=== PATIENT | female | born 1970 | race Caucasian/White ===

== ENCOUNTER → 2021-01-11 11:38 | Outpatient (CLI) | payer OTHER, SELFPAY ==
[2021-01-11 19:57] LABS: COVID19 - ORCAS (NP or Nasal) Negative (Negative)
== END ==
PROVIDERS: Family Provider Family Medicine; PCP Family Medicine; Visit Provider Physician Assistant Medical
DX: Z01.812 Encounter for preprocedural laboratory examination (principal); Z20.822 Contact with and (suspected) exposure to COVID-19
CPT/HCPCS: U0003

== ENCOUNTER → 2021-10-13 09:17 | Outpatient (CLI) | payer OTHER, SELFPAY ==
[2021-10-13 18:24] LABS: Add Manual Diff / Slide Review NO; Basophils Absolute Auto 0 /uL (0-100); Basophils Percent Auto 0.4 % (0-2); Eosinophils Absolute Auto 100 /uL (0-450); Eosinophils Percent Auto 2.2 % (2-4); Hematocrit 40.1 % (36-46); Hemoglobin 13.7 g/dL (12.0-16.0); Lymphocytes Absolute Auto 1300 /uL (1100-4500); Mean Corpuscular HGB Conc 34.1 % (30-36); Mean Corpuscular Hemoglobin 31.2 PG (26-34); Mean Corpuscular Volume 91.5 fL (80-100); Monocytes Absolute Auto 300 /uL (0-900); Monocytes Percent Auto 6.9 % (3-14); Neutrophils Absolute Auto 2800 /uL (1500-7000); Neutrophils Percent Auto 61.5 % (50-75); Red Blood Cell Count 4.38 X10^6/uL (4.0-5.2); Red Cell Distribution Width 12.8 % (11.6-14.8); White Blood Cell Count 4.6 X10^3/uL (4.5-11.0)
[2021-10-13 18:32] LABS: Alanine Aminotransferase 26 IU/L (<35); Albumin 4.4 g/dL (3.5-5.0); Albumin Globulin Ratio 1.5 (1.0-2.8); Alkaline Phosphatase 56 U/L (38-126); Aspartate Aminotransferase 27 IU/L (14-36); BUN Creatinine Ratio 21.2 (6-22); Bilirubin Total 0.7 mg/dL (0.2-1.3); Blood Urea Nitrogen 14 mg/dL (7-17); Calcium 9.5 mg/dL (8.4-10.2); Carbon Dioxide 29 mmol/L (22-32); Chloride 105 mmol/L (98-107); Cholesterol 235 mg/dL (140-199); Estimated Glomerular Filt Rate > 60.0 mL/min (>60); Glucose 100 mg/dL (70-100); HDL Cholesterol 60 mg/dL (40-60); HEMOLYSIS < 15 (0-50); LDL Cholesterol Calculated 154 mg/dL (<100); Potassium 4.6 mmol/L (3.4-5.1); Sodium 139 mmol/L (137-145); Total Protein 7.4 g/dL (6.3-8.2); Triglycerides 103 mg/dL (35-150)
== END ==
PROVIDERS: Family Provider Family Medicine; PCP Family Medicine; Visit Provider Physician Assistant
DX: Z13.220 Encounter for screening for lipoid disorders (principal)
CPT/HCPCS: 80053; 80061; 85025

== ENCOUNTER → 2021-10-17 12:12 | Outpatient (CLI) | payer OTHER, SELFPAY ==
[2021-10-19 08:37] LABS: Interpretation Negative (Negative)
== END ==
PROVIDERS: Family Provider Family Medicine; PCP Physician Assistant; Visit Provider Physician Assistant
DX: R10.33 Periumbilical pain (principal)
CPT/HCPCS: 83013

== ENCOUNTER → 2021-10-25 11:25 | Outpatient (CLI) | payer OTHER, SELFPAY ==
--- NOTE | 2021-10-25 12:01 | DI.CT.S_ITS ---
PROCEDURE: CT ABDOMEN PELVIS W CON INDICATIONS: sharp intermittent pain @ right side umbilicus TECHNIQUE: After the administration of oral and intravenous contrast, axial sections were acquired from the lung bases to the pubic symphysis. Coronal and sagittal reformats were performed. For radiation dose reduction, the following was used: automated exposure control, adjustment of mA and/or kV according to patient size. COMPARISON:None. FINDINGS: Image quality: Excellent. Lung bases: Unremarkable. Heart: No significant findings. ABDOMEN: Liver: Unremarkable. Gallbladder: Surgically absent Biliary ducts: Unremarkable. Pancreas: Unremarkable. Spleen: Unremarkable. Adrenal Glands: Unremarkable. Kidneys and Ureters: Unremarkable. Stomach and Bowel: Stomach, small bowel loops, and colon demonstrate overall normal caliber and wall thickness. There is questionable subtle mucosal thickening and mild pericolonic fat stranding of the ascending colon. The appendix is thin walled and gas filled. Peritoneum: No abnormal intraperitoneal fluid. No free air. Ventral Wall: No hernia. Abdominal Nodes: No retroperitoneal or mesenteric adenopathy by size criteria. Vessels: Aorta and inferior vena cava are normal in size. PELVIS: Pelvic Organs: Unremarkable. An IUD is present within the uterus in the expected location. Bladder: Unremarkable. Pelvic Nodes: No enlarged lymph nodes. Miscellaneous: No inguinal hernias are seen. Bones: Unremarkable. IMPRESSION: 1. Questionable subtle mucosal thickening and pericolonic fat stranding of the ascending colon which may be associated with mild colitis. Follow-up to resolution or colonoscopy recommended to exclude underlying bowel pathology. No free pelvic fluid or pneumoperitoneum. 2. Normal appendix. Dictated by: Ree Kelley M.D. on 10/25/2021 at 13:21 Approved by: Ree Kelley M.D. on 10/25/2021 at 13:27
== END ==
PROVIDERS: Family Provider Family Medicine; PCP Physician Assistant; Referring Provider Physician Assistant; Visit Provider Physician Assistant
DX: R10.33 Periumbilical pain (principal); R19.00 Intra-abdominal and pelvic swelling, mass and lump, unspecified site; Z90.49 Acquired absence of other specified parts of digestive tract
CPT/HCPCS: 74177

== ENCOUNTER → 2022-03-23 13:51 | Outpatient (CLI) | payer OTHER, SELFPAY ==
[2022-03-26 07:25] LABS: Candida species Negative (Negative); Gardnerella vaginalis Negative (Negative); Trichomoas vaginalis Negative (Negative)
== END ==
PROVIDERS: Family Provider Family Medicine; PCP Physician Assistant; Visit Provider Physician Assistant
DX: N89.8 Other specified noninflammatory disorders of vagina (principal); Z12.4 Encounter for screening for malignant neoplasm of cervix
CPT/HCPCS: 87480; 87510; 87660

== ENCOUNTER → 2022-10-08 11:02 | Outpatient (CLI) | payer OTHER, SELFPAY ==
[2022-10-08 19:20] LABS: Add Manual Diff / Slide Review NO; Basophils Absolute Auto 0 /uL (0-100); Basophils Percent Auto 0.5 % (0-2); Eosinophils Absolute Auto 100 /uL (0-450); Eosinophils Percent Auto 1.6 % (2-4); HEMOLYSIS < 15 (0-50); Hematocrit 40.2 % (36-46); Hemoglobin 13.6 g/dL (12.0-16.0); Lymphocytes Absolute Auto 2000 /uL (1100-4500); Lymphocytes Percent Auto 32.6 % (25-40); Mean Corpuscular HGB Conc 33.9 % (30-36); Mean Corpuscular Hemoglobin 31.4 PG (26-34); Mean Corpuscular Volume 92.8 fL (80-100); Monocytes Absolute Auto 400 /uL (0-900); Monocytes Percent Auto 6.6 % (3-14); Neutrophils Absolute Auto 3600 /uL (1500-7000); Neutrophils Percent Auto 58.7 % (50-75); Platelet Count 214 X10^3/uL (150-400); Red Blood Cell Count 4.33 X10^6/uL (4.0-5.2); Red Cell Distribution Width 12.7 % (11.6-14.8); White Blood Cell Count 6.1 X10^3/uL (4.5-11.0)
[2022-10-08 19:23] LABS: Alanine Aminotransferase 29 IU/L (<35); Albumin 4.4 g/dL (3.5-5.0); Albumin Globulin Ratio 1.4 (1.0-2.8); Alkaline Phosphatase 73 U/L (38-126); Aspartate Aminotransferase 29 IU/L (14-36); BUN Creatinine Ratio 19.7 (6-22); Bilirubin Total 0.5 mg/dL (0.2-1.3); Blood Urea Nitrogen 13 mg/dL (7-17); C-Reactive Protein Quant < 0.5 mg/dL (<1.0); Calcium 9.2 mg/dL (8.4-10.2); Carbon Dioxide 30 mmol/L (22-32); Chloride 103 mmol/L (98-107); Cholesterol 246 mg/dL (140-199); Creatine Kinase 166 U/L (30-135); Estimated Glomerular Filt Rate > 60 mL/min (>60); Globulin 3.2 g/dL (1.7-4.1); Glucose 98 mg/dL (70-100); HDL Cholesterol 64 mg/dL (40-60); LDL Cholesterol Calculated 159 mg/dL (<100); Potassium 4.4 mmol/L (3.4-5.1); Sodium 138 mmol/L (137-145); Total Protein 7.6 g/dL (6.3-8.2); Triglycerides 115 mg/dL (35-150)
[2022-10-08 19:31] LABS: Rheumatoid Factor 17.4 IU/mL (<12.0)
[2022-10-08 19:40] LABS: Erythrocyte Sedimentation Rate 8 MM/HR (0-20)
[2022-10-08 19:49] LABS: Estradiol, Total 19.3 pg/mL; TSH w/ Reflex to FT4 0.39 uIU/mL (0.47-4.68)
[2022-10-08 20:08] LABS: Vitamin B12 489 pg/mL (239-931)
[2022-10-08 20:54] LABS: Free T4, Direct Thyroxine 1.06 ng/dL (0.78-2.19)
[2022-10-18 09:39] LABS: Anti Mullerian Hormone 0.027 ng/mL (.)
== END ==
PROVIDERS: Nurse Practitioner Adult Health; Family Provider Family Medicine; PCP Physician Assistant; Visit Provider Physician Assistant
DX: I10 Essential (primary) hypertension (principal); M62.838 Other muscle spasm; R63.5 Abnormal weight gain; M25.50 Pain in unspecified joint; N95.1 Menopausal and female climacteric states
CPT/HCPCS: 80053; 80061; 82397; 82550; 82607; 82670; 83001; 84439; 84443; 85025; 85651; 86140; 86430

== ENCOUNTER → 2022-10-17 11:08 | Outpatient (CLI) | payer OTHER, SELFPAY ==
--- NOTE | 2022-10-17 11:09 | DI.US.S_ITS ---
PROCEDURE: US PELVIC COMPLETE INDICATIONS: lower pelvic bloating TECHNIQUE: Real-time scanning was performed of the pelvic organs, with image documentation. Additional endovaginal scanning was necessary due to incomplete visualization of the adnexal and endometrial structures by transabdominal scanning. COMPARISON: None. FINDINGS: Uterus: 8.8 x 3.9 x 4.2 centimeters. Anteverted. Endometrium measures 12 millimeters, IUD is in place. Ovaries: Right ovary measures 3 cc. Left ovary measures 2 cc. Overall appearance is unremarkable. There is a left 1.2 centimeter para ovarian cyst. Other: No pathologic free abdominal or pelvic fluid. IMPRESSION: No acute sonographic abnormality in the pelvis. IUD is in appropriate position. Endometrium measures 12 millimeters, within normal limits assuming patient is premenopausal. A 1.2 centimeter left paraovarian cyst does not require dedicated follow-up. We strive to produce accurate, complete, and clear reports of imaging services. To assist us in improving patient care, this report was composed using standard report templates and voice recognition software. Therefore, it may contain abnormal punctuation, insertions and/or omissions. Occasional wrong-word or sound-alike substitutions may occur. Though we review the report and make efforts to correct it, we do recommend that the report be read carefully in proper context to recognize any text inaccuracies. Dictated by: Rodolfo Phillip M.D. on 10/17/2022 at 12:48 Approved by: Rodolfo Phillip M.D. on 10/17/2022 at 12:50
== END ==
PROVIDERS: Family Provider Family Medicine; PCP Physician Assistant; Referring Provider Nurse Practitioner Adult Health; Visit Provider Nurse Practitioner Adult Health
DX: N95.1 Menopausal and female climacteric states (principal); R14.0 Abdominal distension (gaseous); N83.202 Unspecified ovarian cyst, left side; Z97.5 Presence of (intrauterine) contraceptive device
CPT/HCPCS: 76830; 76856

== ENCOUNTER → 2022-10-29 13:27 | Outpatient (CLI) | payer OTHER, SELFPAY ==
[2022-10-29 20:35] LABS: Creatine Kinase 211 U/L (30-135); Magnesium 2.3 mg/dL (1.6-2.3)
[2022-10-29 20:47] LABS: Free T3, Triiodothyronine Free 4.65 pg/mL (2.77-5.27); Free T4, Direct Thyroxine 0.99 ng/dL (0.78-2.19)
[2022-10-29 21:28] LABS: Hep C Virus Ab w/Reflex Quant NEGATIVE s/c (NEGATIVE)
[2022-10-30 20:13] LABS: Anti Thyroglobulin Antibody <1.0 IU/mL (0.0-0.9); Thyroid Peroxidase Antibodies 10 IU/mL (0-34)
[2022-10-31 07:59] LABS: Myoglobin 31 ng/mL (25-58)
[2022-10-31 17:28] LABS: CCP Antibodies IgG/IgA 2 units (0-19)
[2022-11-01 21:07] LABS: ANA Screen, IFA Negative (.)
== END ==
PROVIDERS: Family Provider Family Medicine; PCP Physician Assistant; Visit Provider Physician Assistant
DX: E05.90 Thyrotoxicosis, unspecified without thyrotoxic crisis or storm (principal); M62.838 Other muscle spasm; N95.1 Menopausal and female climacteric states; R76.8 Other specified abnormal immunological findings in serum; R79.89 Other specified abnormal findings of blood chemistry; R74.8 Abnormal levels of other serum enzymes
CPT/HCPCS: 82550; 83735; 83874; 84439; 84443; 84481; 86038; 86200; 86376; 86800; 86803

== ENCOUNTER → 2023-02-08 14:22 | Outpatient (CLI) | payer OTHER, SELFPAY ==
--- NOTE | 2023-02-08 14:25 | DI.US.S_ITS ---
PROCEDURE: US THYROID INDICATIONS: Abnormal results of thyroid function studies TECHNIQUE: Real-time scanning was performed of the thyroid gland, with image documentation. COMPARISON: None. FINDINGS: Right: Thyroid lobe measures 5.5 x 1.2 x 2.1 cm, and is homogeneous in echotexture. Left: Thyroid lobe measures 4.8 x 1.4 x 2.0 cm, and is homogenous in echotexture. Isthmus: 4 mm thick. Nodule number: 1 Location: Right inferior Size: 0.7 x 0.5 x 0.9 cm. Composition: Solid Echogenicity: Hypoechoic Shape: wider than tall. Margins: Smooth Echogenic foci: None Total points: 4 ACR TI-RADS category: 4 IMPRESSION: Category 4 lesion as above. Secondary to size and recommendations below, no additional follow-up. ACR TI-RADS definitions and recommendations: TI-RADS 1 (benign): 0 points. FNA not needed. TI-RADS 2 (not suspicious): 2 points. FNA not needed. TI-RADS 3 (mildly suspicious): 3 points. * FNA if 2.5 cm or larger, follow up if 1.5 cm or larger (at 1, 3, and 5 years). TI-RADS 4 (moderately suspicious): 4-6 points. * FNA if 1.5 cm or larger, follow up if 1 cm or larger (at 1, 2, 3, and 5 years). TI-RADS 5 (highly suspicious): 7 points or more. * FNA if 1 cm or larger, follow up if 0.5 cm or larger (every year for 5 years). Dictated by: Mayda Luna M.D. on 02/08/2023 at 16:17 Approved by: Mayda Luna M.D. on 02/08/2023 at 16:18
== END ==
PROVIDERS: Family Provider Family Medicine; PCP Physician Assistant; Referring Provider Internal Medicine Endocrinology, Diabetes & Metabolism; Visit Provider Internal Medicine Endocrinology, Diabetes & Metabolism
DX: R94.6 Abnormal results of thyroid function studies (principal); E04.1 Nontoxic single thyroid nodule
CPT/HCPCS: 76536

== ENCOUNTER 2023-04-12 11:34 | Day surgery (SDC) | payer OTHER, SELFPAY ==
--- NOTE | 2023-04-12 | PATH_ITS ---
[facility] Accession Number: [id number] No. of containers..02 Tissue . 01 Material submitted: . PART A: colon - CECUM POLYP PART B: colon - TRANSVERSE POLYP . 01 Diagnosis: A- COLON, CECUM, POLYP BIOPSY: - BENIGN COLONIC MUCOSA WITH BENIGN LYMPHOID AGGREGATE. --- B- COLON, TRANSVERSE, POLYP BIOPSY: - SESSILE SERRATED ADENOMA. TXN 04/18/2023 1007 Local . 01 Electronically signed: . Kennedi Ramires MD, Pathologist NPI- [id number] . 01 Gross description: . Part A: CECUM POLYP: Received in formalin is 1 fragment(s) of shetty, soft tissue measuring 0.7 x 0.2 x 0.1 cm submitted entirely in 1 cassette(s) Part B: TRANSVERSE POLYP: Received in formalin are 3 fragment(s) of shetty, soft tissue measuring 0.1 x 0.1 x 0.1 cm to 0.3 x 0.3 x 0.2 cm submitted entirely in 1 cassette(s) /KASIA 04/16/2023 2226 Local . 01 Pathologist provided ICD-10: Z12.11 . 01 CPT . 681304, [id number] Specimen Comment: A courtesy copy of this report has been sent to [facility] Pathology Performed at: 01 [facility] [address] [place] [address] [address], [place], [place] [id number] MD Jens Parikh MD Phone: [phone]
[2023-04-12 12:32] VITALS: BP 129/85; PULSE 71; RESP 16; TEMP 36.6; O2SAT 98; BMI 31.7
[2023-04-12] MEDS: LACTATED RINGERS 1,000 ML 42 ML IV (13:11)
--- NOTE | 2023-04-12 13:45 | PM.HP.1 ---
History of Present Illness History of Present Illness Date Patient Seen: 04/12/23 Time Patient Seen: 13:46 Chief complaint: [facility] Narrative: Ms. Hays is a 52-year-old female who presents today for her 2nd follow-up colonoscopy. Her last 1 was done about 2 years ago in [place] and they found approx. 10 polyps. she was told to have a 2 year follow-up because of the number of polyps. She has no family history of colon cancer and no symptoms that are concerning for her. That last colonoscopy was her 1st this will be her 2nd she has no further questions and would like to proceed [facility] Medical History (Updated 04/12/23 @ 13:47 by Patty Pope MD) Abnormal Pap smear of cervix (~1989) Abnormal results of thyroid function studies Chicken pox (~1979) Elevated liver enzymes Encounter for screening colonoscopy Family history of malignant neoplasm of other organs or systems Generalized bloating IUD strings lost Melanoma (~2020) MRSA (methicillin resistant Staphylococcus aureus) (~2009) Pain in left hip Pain in right hip Perimenopausal symptoms Restless leg syndrome Subclinical hyperthyroidism Surgical History (Updated 10/17/21 @ 21:32 by Olive Olson) Anesthesia History of cholecystectomy (~2017) History of knee surgery (~1995) Family History (Updated 10/17/21 @ 21:34 by Olive Olson) Father Prostate cancer Mother Arrhythmia Hypertension Skin cancer Brother Crohn's disease History of heart surgery Social History household members: spouse Smoking Status: Never smoker alcohol intake: current Meds Home Medications and Allergies Home Medications Medication Instructions Recorded Confirmed Type [id number] 5 mg-zeaxanth 1 cap PO DAILY 10/02/22 04/12/23 History 1 mg-bilberry 7.5 mg-herbal capsule (Macular Health Formula) hydrochlorothiazide 25 mg tablet 25 mg PO DAILY 04/12/23 04/12/23 History losartan 50 mg tablet 50 mg PO DAILY 04/12/23 04/12/23 History Allergies Allergy/AdvReac Type Severity Reaction Status Date / Time lisinopril Allergy Unknown Cough Verified 04/10/22 16:12 Exam Vital Signs (past 8 hours): - 04/12/23 12:32 Temperature 97.9 F Pulse Rate 71 Respiratory Rate 16 Blood Pressure 129/85 Pulse Oximetry 98 Oxygen Delivery Method Room Air Oxygen Delivery Method Room Air Const General: cooperative, healthy appearing and comfortable Nutritional Appearance: average body habitus and well nourished [facility] Head: normal to inspection Eyes General: appearance normal, both eyes and all related structures Resp Effort & Inspection: normal respiratory effort and able to speak in complete sentences GI Palpation: soft and No tender Assessment & Plan Assessment and plan (1) Colon cancer screening: Status: Acute (2) Colon polyp: Status: Acute (3) History of colon polyps: Status: Acute Assessment & Plan narrative: Presents today for screening colonoscopy I discussed the risks benefits and alternatives including but not limited to perforation of the colon and an incomplete exam she fully understands these risks and would like to proceed.
[2023-04-12 14:27] VITALS: BP 119/64; PULSE 90; RESP 16; TEMP 36.4; O2SAT 97
[2023-04-12 14:32] VITALS: BP 107/68; PULSE 88; RESP 18; O2SAT 97
[2023-04-12 14:37] VITALS: BP 94/69; PULSE 83; RESP 12; TEMP 36.4; O2SAT 100
--- NOTE | 2023-04-12 14:38 | PM.OP.COLON ---
Operative Date/Time/Diagnoses Date of procedure: 04/12/23 Time of procedure: 14:38 Pre-op diagnosis: Colon cancer screening no family history Post-op diagnosis: same Procedure & Clinicians Study performed: Colonoscopy and biopsy Indications: Colon cancer screening, history of many polyps Surgeon: Patty Pope Procedure Notes Procedure in detail: Patient was taken to the endoscopy suite and placed in a left lateral decubitus position. A time-out was performed. With the help of anesthesiologist conscious sedation was induced and monitored throughout the case. A digital rectal exam was performed and there were no masses or strictures. The colonoscope was introduced into the anal canal and advanced through to the cecum. A photograph of the appendiceal orifice was obtained. The bowel prep was good [place] bowel prep score of 2. The scope was then withdrawn for a total of 15 minutes including biopsy time. There was 1 small polyp in the cecum that was removed with the forceps. There was a 2nd slightly larger sessile type of polyp removed with 3 bites of the forceps in the transverse colon. The scope was then retroflexed and a photograph of the internal hemorrhoidal piles was obtained. Findings: polyp(s) Specimen(s): other (1. Small cecal polyp 2. Transverse colon polyp ) Complications: none Post-procedure Plan for aftercare: There were 2 small polyps depending on the pathology that may affect a follow-up recommendation but given that you had so many polyps just 2 years ago I believe a 5 year follow-up seems reasonable. We will send a letter with your final pathology report and final recommendations for follow-up interval. Any patient with a polyps I do recommend daily fiber supplementation.
[2023-04-12 14:44] VITALS: BP 143/87; PULSE 76; RESP 18; O2SAT 100
== END 2023-04-12 15:00 | disposition home or self-care (01) ==
PROVIDERS: Family Provider Family Medicine; PCP Family Medicine; Referring Provider Surgery; Visit Provider Surgery
PROC: 0DJD8ZZ Inspection of Lower Intestinal Tract, Via Natural or Artificial Opening Endoscopic (ICD-10-PCS; CPT 45378; principal; 2023-04-12 13:00)
DX: Z12.11 Encounter for screening for malignant neoplasm of colon (principal); Z86.010 Personal history of colon polyps; D12.3 Benign neoplasm of transverse colon
CPT/HCPCS: 45380

== ENCOUNTER → 2023-05-03 13:56 | Outpatient (CLI) | payer OTHER, SELFPAY ==
--- NOTE | 2023-05-03 | DI.MRI.S_ITS ---
PROCEDURE: MR PELIS WO/W CON INDICATIONS: SACROILIAC INFLAMMATION TECHNIQUE: Noncontrast axial and oblique coronal T1 spin echo and STIR through the sacroiliac joints. COMPARISON: None. FINDINGS: Image quality: Excellent. Bones: The sacroiliac joints appear intact. No adjacent bone marrow edema to suggest active sacroiliitis. No bony ankylosis. No suspicious marrow space occupying lesions. Soft tissues: No presacral masses. Rectum appears normal in caliber and wall thickness. No pathologic free pelvic fluid. IMPRESSION: 1. No MR evidence of active sacroiliitis. No bony erosion or ankylosis. 2. No fracture or dislocation. No abnormal intraosseous enhancement. 3. No presacral soft tissue abnormalities. Dictated by: John Rice M.D. on 05/03/2023 at 16:32 Approved by: John Rice M.D. on 05/03/2023 at 16:34
== END ==
PROVIDERS: Family Provider Family Medicine; PCP Family Medicine; Referring Provider Specialist/Technologist Athletic Trainer; Visit Provider Specialist/Technologist Athletic Trainer
DX: M46.1 Sacroiliitis, not elsewhere classified (principal)
CPT/HCPCS: 72197; A9579

== ENCOUNTER → 2024-04-10 08:20 | Outpatient (CLI) | payer OTHER, SELFPAY ==
[2024-04-10 18:40] LABS: Add Manual Diff / Slide Review NO; Basophils Absolute Auto 0 /uL (0-100); Basophils Percent Auto 0.6 % (0-2); Eosinophils Absolute Auto 100 /uL (0-450); Eosinophils Percent Auto 2.6 % (2-4); Hematocrit 43.2 % (36-46); Hemoglobin 14.5 g/dL (12.0-16.0); Lymphocytes Absolute Auto 1700 /uL (1100-4500); Lymphocytes Percent Auto 31.7 % (25-40); Mean Corpuscular HGB Conc 33.5 % (30-36); Mean Corpuscular Hemoglobin 31.4 PG (26-34); Mean Corpuscular Volume 93.6 fL (80-100); Monocytes Absolute Auto 500 /uL (0-900); Neutrophils Absolute Auto 3000 /uL (1500-7000); Neutrophils Percent Auto 56.1 % (50-75); Platelet Count 227 X10^3/uL (150-400); Red Blood Cell Count 4.61 X10^6/uL (4.0-5.2); Red Cell Distribution Width 12.6 % (11.6-14.8); White Blood Cell Count 5.4 X10^3/uL (4.5-11.0)
[2024-04-10 19:52] LABS: Follicle Stimulating Hormone 22.6 mIU/mL
[2024-04-10 20:04] LABS: TSH w/ Reflex to FT4 0.61 uIU/mL (0.47-4.68)
[2024-04-10 20:15] LABS: Alanine Aminotransferase 56 IU/L (<35); Albumin 4.5 g/dL (3.5-5.0); Albumin Globulin Ratio 1.5 (1.0-2.8); Alkaline Phosphatase 75 U/L (38-126); Aspartate Aminotransferase 48 IU/L (14-36); BUN Creatinine Ratio 20.6 (6-22); Bilirubin Total 0.7 mg/dL (0.2-1.3); Blood Urea Nitrogen 14 mg/dL (7-17); Carbon Dioxide 26 mmol/L (22-32); Chloride 102 mmol/L (98-107); Cholesterol 258 mg/dL (140-199); Estimated Glomerular Filt Rate > 60 mL/min (>60); Glucose 104 mg/dL (70-100); HDL Cholesterol 67 mg/dL (40-60); HEMOLYSIS < 15 (0-50); LDL Cholesterol Calculated 168 mg/dL (<100); Potassium 4.4 mmol/L (3.4-5.1); Sodium 135 mmol/L (137-145); Total Protein 7.5 g/dL (6.3-8.2); Triglycerides 113 mg/dL (35-150)
[2024-04-12 05:09] LABS: Triiodothyronine T3 Total 99 ng/dL (71-180)
== END ==
PROVIDERS: Family Provider Family Medicine; PCP Family Medicine; Visit Provider Family Medicine
DX: E04.1 Nontoxic single thyroid nodule (principal); R23.2 Flushing; N91.2 Amenorrhea, unspecified; R79.89 Other specified abnormal findings of blood chemistry; I10 Essential (primary) hypertension; E78.5 Hyperlipidemia, unspecified
CPT/HCPCS: 80053; 80061; 83001; 84443; 84445; 84480; 85025

== ENCOUNTER → 2024-09-08 09:31 | Outpatient (CLI) | payer OTHER, SELFPAY ==
[2024-09-08 19:20] LABS: HEMOLYSIS < 15 (0-50); Iron 124 ug/dL (37-170)
[2024-09-08 19:29] LABS: Alanine Aminotransferase 75 IU/L (<35); Albumin 4.7 g/dL (3.5-5.0); Albumin Globulin Ratio 1.7 (1.0-2.8); Alkaline Phosphatase 76 U/L (38-126); Aspartate Aminotransferase 59 IU/L (14-36); BUN Creatinine Ratio 21.4 (6-22); Bilirubin Total 0.8 mg/dL (0.2-1.3); Blood Urea Nitrogen 15 mg/dL (7-17); Calcium 9.9 mg/dL (8.4-10.2); Carbon Dioxide 30 mmol/L (22-32); Chloride 103 mmol/L (98-107); Cholesterol 212 mg/dL (140-199); Estimated Glomerular Filt Rate > 60 mL/min (>60); Globulin 2.8 g/dL (1.7-4.1); Glucose 103 mg/dL (70-100); HDL Cholesterol 65 mg/dL (40-60); HEMOLYSIS < 15 (0-50); LDL Cholesterol Calculated 121 mg/dL (<100); Potassium 4.1 mmol/L (3.4-5.1); Sodium 140 mmol/L (137-145); Total Protein 7.5 g/dL (6.3-8.2); Triglycerides 130 mg/dL (35-150)
[2024-09-08 19:34] LABS: Percent Iron Saturation 44 % (15-50); Total Iron Binding Capacity 282 ug/dL (265-497); Transferrin 284 mg/dL (206-381)
[2024-09-08 19:40] LABS: Follicle Stimulating Hormone 29.1 mIU/mL; Hemoglobin A1C% w Est Avg Glu 5.5 % (4.0-6.0)
[2024-09-08 20:04] LABS: Ferritin 195 ng/mL (11-264)
[2024-09-10 01:07] LABS: HBsAg Screen Negative (Negative); Hepatitis A Antibody IgM Negative (Negative); Hepatitis B Core Antibody IgM Negative (Negative); Hepatitis C Antibody Non Reactive (Non Reactive)
[2024-09-18 23:36] LABS: Anti Mullerian Hormone <0.015 ng/mL (.)
== END ==
PROVIDERS: Family Provider Family Medicine; PCP Family Medicine; Visit Provider Family Medicine
DX: Z85.820 Personal history of malignant melanoma of skin (principal)
CPT/HCPCS: 80053; 80061; 80074; 82397; 82670; 82728; 83001; 83036; 83540; 83550

== ENCOUNTER → 2024-12-04 08:10 | Outpatient (CLI) | payer OTHER, SELFPAY ==
[2024-12-04 19:13] LABS: HEMOLYSIS 27 (0-50); Iron 53 ug/dL (37-170)
[2024-12-04 19:24] LABS: Percent Iron Saturation 18 % (15-50); Total Iron Binding Capacity 301 ug/dL (265-497); Transferrin 251 mg/dL (206-381)
[2024-12-04 19:25] LABS: Gamma Glutamyl Transpeptidase 26 U/L (12-43)
[2024-12-04 19:36] LABS: LDL Cholesterol Direct 79 mg/dL (<100)
[2024-12-04 20:01] LABS: Ferritin 248 ng/mL (11-264)
== END ==
PROVIDERS: Family Provider Family Medicine; PCP Family Medicine; Visit Provider Family Medicine
DX: R79.89 Other specified abnormal findings of blood chemistry (principal); I10 Essential (primary) hypertension
CPT/HCPCS: 82728; 82977; 83540; 83550; 83721

== ENCOUNTER → 2025-06-11 11:53 | Outpatient (CLI) | payer OTHER, SELFPAY ==
[2025-06-11 18:23] LABS: Hematocrit 42.0 % (36-46); Hemoglobin 14.1 g/dL (12.0-16.0); Lymphocytes Absolute Auto 2000 /uL (1100-4500); Mean Corpuscular HGB Conc 33.7 % (30-36); Mean Corpuscular Hemoglobin 30.7 PG (26-34); Mean Corpuscular Volume 91.0 fL (80-100)
[2025-06-11 18:25] LABS: Add Manual Diff / Slide Review SLIDE REVIEW
[2025-06-11 18:38] LABS: RBC Morphology Normal Morphology
[2025-06-11 19:25] LABS: Iron 98 ug/dL (37-170)
[2025-06-11 19:26] LABS: Alanine Aminotransferase 40 IU/L (<35); Albumin 5.2 g/dL (3.5-5.0); Albumin Globulin Ratio 1.7 (1.0-2.8); Alkaline Phosphatase 83 U/L (38-126); Blood Urea Nitrogen 16 mg/dL (7-17); Calcium 9.8 mg/dL (8.4-10.2); Carbon Dioxide 23 mmol/L (22-32); Chloride 103 mmol/L (98-107); Estimated Glomerular Filt Rate > 60 mL/min (>60); Globulin 3.0 g/dL (1.7-4.1); Glucose 99 mg/dL (70-99); HEMOLYSIS 16 (0-50); Potassium 4.2 mmol/L (3.4-5.1); Sodium 140 mmol/L (137-145); Total Protein 8.2 g/dL (6.3-8.2)
[2025-06-11 19:35] LABS: Percent Iron Saturation 27 % (15-50); Total Iron Binding Capacity 369 ug/dL (265-497)
[2025-06-11 20:01] LABS: Ferritin 174 ng/mL (11-264)
[2025-06-12 13:41] LABS: Rubeola Measles IgG > 300.0 AU/mL (Immune >16.4)
== END ==
PROVIDERS: Family Provider Family Medicine; PCP Family Medicine; Visit Provider Family Medicine
DX: R74.8 Abnormal levels of other serum enzymes (principal); R79.89 Other specified abnormal findings of blood chemistry; I10 Essential (primary) hypertension; Z79.890 Hormone replacement therapy; E78.5 Hyperlipidemia, unspecified; Z72.820 Sleep deprivation; R23.2 Flushing; E66.813 Obesity, class 3; E66.01 Morbid (severe) obesity due to excess calories; Z68.41 Body mass index [BMI] 40.0-44.9, adult; Z20.9 Contact with and (suspected) exposure to unspecified communicable disease; Z97.5 Presence of (intrauterine) contraceptive device
CPT/HCPCS: 80053; 82728; 83540; 83550; 85025; 86765